=== PATIENT | male | born 1985 | race African-American/Black ===

== ENCOUNTER 2023-07-12 14:00 | Emergency (ER) | payer OTHER ==
[2023-07-12 14:06] VITALS: BP 107/60; PULSE 85; RESP 18; TEMP 98.4; BMI 25.0
[2023-07-12] MEDS ORDERED: FAMOTIDINE 20 MG/50 ML IVPB 20 MG/50 ML MG IVPB ONE (15:21)
[2023-07-12] MEDS ORDERED: ACETAMINOPHEN INJECTION 100 ML IVPB ONE (15:21)
[2023-07-12] MEDS: ACETAMINOPHEN 1000 MG/100 ML BAG IVPB ONE (15:43)
[2023-07-12] MEDS: FAMOTIDINE 20 MG/50 ML IVPB 20 MG/50 ML MG IVPB ONE (15:43)
[2023-07-12] MEDS: SODIUM CHLORIDE 0.9% 500 ML INFUS.BAG IV ONE (15:43)
[2023-07-12 15:48] LABS: BASO % 0.2 % (0-2.0); EOS % 0.5 % (0-4.5); HEMATOCRIT 43.7 % (35.4-49); HEMOGLOBIN 14.9 GM/dL (11.7-16.9); LYMPH % 10.2 % (8-40); MCH 32.8 pg (25.7-33.7); MEAN CELL VOLUME 96.4 fl (80-96); MONO % 7.6 % (3.8-10.2); NEUT % 81.5 % (42.8-82.8); PLATELET COUNT 173 10^3/uL (134-434); RBC 4.53 M/mm3 (4.00-5.60); RDW 14.1 % (11.9-15.9); WHITE BLOOD COUNT 5.8 K/mm3 (4.0-10.0)
[2023-07-12 15:50] LABS: PH,URINE 5.5 (5.0-8.0); URINE APPEARANCE CLEAR; URINE BILIRUBIN NEGATIVE (NEGATIVE); URINE COLOR YELLOW; URINE GLUCOSE (UA) NEGATIVE (NEGATIVE); URINE KETONE TRACE (NEGATIVE); URINE LEUK ESTERASE NEGATIVE (NEGATIVE); URINE NITRITE NEGATIVE (NEGATIVE); URINE PROTEIN NEGATIVE (NEGATIVE); URINE UROBILINOGEN 0.2 mg/dL (0.2-1.0)
[2023-07-12 15:54] LABS: INR 1.08 (0.83-1.09); PROTHROMBIN TIME (PATIENT) 12.5 SEC (9.7-13.0)
[2023-07-12 15:57] LABS: ACTIVATED PTT 29.5 SECONDS (25.2-36.5)
[2023-07-12 16:02] LABS: POTASSIUM 3.9 mmol/L (3.5-5.1)
[2023-07-12 16:04] LABS: CALCIUM 9.2 mg/dL (8.5-10.1)
[2023-07-12 16:05] LABS: ALBUMIN 4.2 g/dl (3.4-5.0); BLOOD UREA NITROGEN 11.4 mg/dL (7-18)
[2023-07-12 16:08] LABS: CREATININE 1.2 mg/dL (0.55-1.3)
[2023-07-12 16:10] LABS: BILIRUBIN,TOTAL 0.7 mg/dL (0.2-1)
== END 2023-07-12 18:06 | disposition home or self-care (01) ==
LOC: JER 14:00
PROC: 3E033GC Introduction of Other Therapeutic Substance into Peripheral Vein, Percutaneous Approach (ICD-10-PCS; principal; 2023-07-12)
PROC: 3E033NZ Introduction of Analgesics, Hypnotics, Sedatives into Peripheral Vein, Percutaneous Approach (ICD-10-PCS; 2023-07-12)
DX: R10.30 Lower abdominal pain, unspecified (principal); R19.7 Diarrhea, unspecified; A08.4 Viral intestinal infection, unspecified; Z20.822 Contact with and (suspected) exposure to COVID-19
CPT/HCPCS: 0241U-QW; 36415; 80053; 81003; 85025; 85610; 85730; 86850; 86900; 86901; 87086; 99284-25; J0131